=== PATIENT | female | born 1965 | race African-American/Black ===

== ENCOUNTER → 2017-05-05 | Outpatient (CLI) | payer BC ==
[~2017-05-05] MED LIST: BUPIVACAINE MPF 0.5% 30 ML VIAL. ONE; IOHEXOL 300 MG/ML 50 ML VIAL. ONE; LIDOCAINE 1% PF 30 ML VIAL. ONE; methylPREDNISolone ACETATE 40 MG/ML VIAL. ONE
== END | disposition home or self-care (01) ==
LOC: SURG 13:08
PROVIDERS: ATTEND Anesthesiology Pain Medicine
DX: M46.1 Sacroiliitis, not elsewhere classified (principal); M19.90 Unspecified osteoarthritis, unspecified site; K21.9 Gastro-esophageal reflux disease without esophagitis; Z79.899 Other long term (current) drug therapy
CPT/HCPCS: 27096; J1030; J2001; J3490; Q9967; 99204